=== PATIENT | male | born 1995 | race Caucasian/White ===

== ENCOUNTER 2024-01-15 17:19 | Emergency (ER) | payer OTHER ==
[~2024-01-15] VITALS: Ht 188 cm; Wt 90.0 kg
[2024-01-15 17:20] VITALS: TEMP 98.4
[2024-01-15 19:53] LABS: BASOPHILS % (AUTO) 0.5 % (0.0-2.0); EOSINOPHILS % (AUTO) 0.9 % (1.0-6.0); HEMATOCRIT 43.3 % (41-53); HEMOGLOBIN 14.2 g/dL (13.5-17.5); LYMPHOCYTES # (AUTO) 1.3 K/uL (1.0-4.8); LYMPHOCYTES % (AUTO) 23.9 % (22.0-44.0); MEAN CORPUSCULAR HEMOGLOBIN 28.1 pg (26.0-34.0); MEAN CORPUSCULAR HGB CONC 32.8 G/dL (31.0-37.0); MEAN CORPUSCULAR VOLUME 86 fL (80-100); MONOCYTES # (AUTO) 0.7 K/uL (0.1-1.0); MONOCYTES % (AUTO) 13.1 % (2.0-9.0); NEUTROPHILS # (AUTO) 3.4 K/uL (1.8-7.7); NEUTROPHILS % (AUTO) 61.6 % (40.0-70.0); PLATELET COUNT (AUTO) 206 K/uL (150-450); RED BLOOD CELL COUNT(AUTO) 5.04 MIL/uL (4.50-5.90); WHITE BLOOD COUNT (AUTO) 5.5 K/uL (4.5-11.0)
[2024-01-15 19:59] LABS: ANION GAP 4 mmol/L (8-16); CALCIUM, TOTAL 8.9 mg/dL (8.8-10.5); CARBON DIOXIDE 32 mmol/L (22-29); CHLORIDE 101 mmol/L (98-107); CREATININE 1.09 mg/dL (0.60-1.30); GLOMERULAR FILTR. RATE CALC > 60 mL/min (>60); GLUCOSE,RANDOM 119 mg/dL (70-110); POTASSIUM 4.3 mmol/L (3.5-5.1); SODIUM SERUM 137 mmol/L (136-145); UREA NITROGEN, BLOOD 23 mg/dL (7-18)
[2024-01-15 20:00] LABS: LIPASE 31 U/L (16-77)
[2024-01-15 20:14] LABS: LACTIC ACID 0.7 mmol/L (0.4-2.0)
[2024-01-15] MEDS: KETOROLAC TROMETHAMINE 60 MG/2 ML VIAL IM ONE (21:28)
[2024-01-15] MEDS: ACETAMINOPHEN 500 MG TABLET PO ONE (21:28)
[2024-01-15] MEDS: TraMADol HCL 50 MG TABLET PO ONE (21:29)
[2024-01-15] MEDS: PREGABALIN 75 MG CAPSULE PO ONE (22:42)
[2024-01-15 23:03] VITALS: BP 132/98; PULSE 92; RESP 16
== END 2024-01-15 23:05 | disposition home or self-care (01) ==
LOC: EMS 17:19
DX: D17.9 Benign lipomatous neoplasm, unspecified (principal)
CPT/HCPCS: 99284; 80048; 83605; 83690; 85025; 36415; 96372; J1885